=== PATIENT | male | born 2000 | race Hispanic/Latino ===

== ENCOUNTER 2020-08-12 20:32 | Emergency (ER) | payer OTHER, SELFPAY ==
[2020-08-12 21:16] LABS: Basophils # (Auto) 0.1 K/mm3 (0.0-0.1); Basophils % (Auto) 0.9 % (0.0-1.8); Eosinophils # (Auto) 0.1 K/mm3 (0.0-0.4); Eosinophils % (Auto) 0.6 % (0.0-4.3); Hematocrit 44.5 % (35.5-45.6); Hemoglobin 15.1 gm/dl (11.8-15.2); Lymphocytes # (Auto) 1.4 K/mm3 (1.2-5.4); Mean Corpuscular HGB Conc 34 % (32-34); Mean Corpuscular Volume 86 fl (84-94); Monocytes # (Auto) 0.7 K/mm3 (0.0-0.8); Monocytes % (Auto) 5.2 % (0.0-7.3); Platelet Count 260 K/mm3 (140-440); Red Blood Count 5.18 M/mm3 (3.65-5.03); Red Cell Distribution Width 13.7 % (13.2-15.2)
[2020-08-12 21:35] LABS: BUN/Creatinine Ratio 14; Blood Urea Nitrogen 11 mg/dL (9-20); Hemolysis Index 23
[2020-08-12 21:43] LABS: Bacteria,Urine 1+ /HPF (Negative); Bilirubin,Urine NEG (Negative); Blood,Urine NEG (Negative); Color,Urine Yellow (Yellow); Mucus,Urine 3+ /HPF; Urobilinogen,Urine < 2.0 mg/dL (<2.0)
[2020-08-12 21:45] LABS: Amphetamine Screen,Urine Negative; Benzodiazepines Screen,Urine Negative; Cannabinoid Screen,Urine Negative; Cocaine Screen,Urine Negative; Methadone Screen,Urine Negative; Opiate Screen,Urine Negative
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
[2020-08-12] MEDS ORDERED: diphenhydrAMINE 25 MG CAP PO PRN (22:16)
[2020-08-12] MEDS ORDERED: ONDANSETRON 4 MG ODT TAB PO PRN (22:16)
[2020-08-12] MEDS ORDERED: LORazepam 2 MG/ML VIAL IM PRN (22:16)
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
--- NOTE | 2020-08-13 10:24 | Event Note ---
Date: 08/13/20 EMR, vital signs, consultation noted. No issues brought to my attention. Patient remains 1013 status.
[2020-08-13 17:50] LABS: Basophils # (Auto) 0.1 K/mm3 (0.0-0.1); Eosinophils # (Auto) 0.1 K/mm3 (0.0-0.4); Eosinophils % (Auto) 2.4 % (0.0-4.3); Hematocrit 43.7 % (35.5-45.6); Hemoglobin 14.4 gm/dl (11.8-15.2); Lymphocytes # (Auto) 1.6 K/mm3 (1.2-5.4); Lymphocytes % (Auto) 27.6 % (13.4-35.0); Mean Corpuscular HGB Conc 33 % (32-34); Mean Corpuscular Volume 87 fl (84-94); Monocytes # (Auto) 0.4 K/mm3 (0.0-0.8); Platelet Count 246 K/mm3 (140-440); Red Blood Count 5.03 M/mm3 (3.65-5.03); Red Cell Distribution Width 13.6 % (13.2-15.2)
--- NOTE | 2020-08-14 10:24 | Event Note ---
Date: 08/14/20 20-year-old male who initially presented with depression and suicidal ideation, now awaiting psychiatric placement. S: No acute events overnight. Patient reports that he still feels suicidal and his depressive symptoms are unchanged. He denies any new physical symptoms or complaints. He denies any new auditory visual hallucinations. O: Vital Signs - 24 hr 08/13/20 08/13/20 08/13/20 17:11 17:47 19:55 Temperature 98.2 F 98.5 F Pulse Rate 70 74 67 Respiratory 18 17 16 Rate Blood Pressure 105/57 116/66 114/66 [Right] O2 Sat by Pulse 99 99 99 Oximetry 08/14/20 01:20 Temperature 97.9 F Pulse Rate 69 Respiratory 16 Rate Blood Pressure 99/60 [Right] O2 Sat by Pulse 97 Oximetry GENERAL: Well developed. Well nourished. No acute distress HEENT: Normocephalic. Atratumatic. Moist mucous membranes. EYES: Extraocular movements are intact. Pupils are equal round and reactive to light bilaterally NECK: Supple. Trachea is midline. LUNGS: Nonlabored breathing. Equal chest rise bilaterally. Clear to auscultation bilaterally. HEART/CARDIOVASCULAR: Regular rate and rhythm. No murmurs or rubs. SKIN: Skin is warm and dry NEURO: Patient is awake, alert, and oriented. No focal deficits. A/P: 20-year-old male with major depressive disorder and acute suicidal id eation. Continue psychiatric care while awaiting placement.
[2020-08-15 09:27] VITALS: BP 122/59
--- NOTE | 2020-08-15 11:40 | Event Note ---
Date: 08/15/20 20-year-old male who presented on 530 with depression and suicidal ideation. S: Patient states that he feels fine. He has no physical complaints at this time. He says he feels depressed but better than he did yesterday. O: The patient is well-appearing and in no acute distress. He has moist mucous membranes. Heart sounds are normal. Lungs are clear to auscultation bilaterally. He has no abdominal tenderness. Skin is warm and dry. Vital Signs - 24 hr 08/14/20 08/15/20 08/15/20 20:24 02:25 08:39 Temperature 98.1 F 97.8 F 97.7 F Pulse Rate 86 62 77 Respiratory 18 16 18 Rate Blood Pressure 119/76 104/62 122/59 [Right] O2 Sat by Pulse 96 97 98 Oximetry A/P: 21-year-old male presenting with acute depression and suicidal ideation. Evaluated by psychiatry and awaiting facility placement.
== END 2020-08-15 13:03 ==
LOC: ED 20:32 → EEVIPCON 20:32 → ED 08-15 13:03
DX: Z13.30 Encounter for screening examination for mental health and behavioral disorders, unspecified (principal); Z20.822 Contact with and (suspected) exposure to COVID-19; F31.9 Bipolar disorder, unspecified; F90.9 Attention-deficit hyperactivity disorder, unspecified type; Z79.899 Other long term (current) drug therapy
CPT/HCPCS: 36415; 80048; 80307; 81001; 82550; 85025; 99285; U0003; 80320; G0480